=== PATIENT | female | born 1945 | race American Indian/Alaskan Native ===

== ENCOUNTER 2017-03-13 09:35 | Outpatient (CLI) | payer MEDICARE ==
--- NOTE | 2017-03-13 12:46 | Mammography Report ---
Bilateral mammogram and bilateral breast ultrasound: The patient presents with a history of left mastectomy with reconstruction. Currently feeling some discomfort in the left breast and occasional palpable nodules in the right breast which she cannot currently identify. Routine mammographic views in addition to an exaggerated right CC image of the lateral breast demonstrates generally fatty replacement of the breast tissue unchanged from prior examination in 2015. The left breast is considerably smaller with a large volume of chunky calcification in both the superior and inferior portions of the breast. These findings are likewise unchanged. Bilateral whole breast ultrasound demonstrates a generally unremarkable breast pattern on the right. Specifically, there is no evidence of nodule or abnormal shadowing. Imaging of the left breast however demonstrates dense shadowing from areas consistent with the dense breast calcifications. No focal findings are otherwise identified. CAD used. Impression: Stable bilateral mammogram post left mastectomy. No pathology on bilateral breast ultrasound. Recommendation: Clinical followup. Annual mammogram followup. Any additional evaluation at this time should be based on your concern. BI-RADS CATEGORY: 2 = Benign ACR BI-RADS MAMMOGRAPHIC CODES: 0 = Needs additional imaging evaluation; 1 = Negative; 2 = Benign; 3 = Probably benign; 4 = Suspicious; 5 = Malignant; 6 = Known biopsy-proven malignancy COMMENT: 1. Dense breast tissue, i.e., adenosis, fibrocystic changes, etc., may obscure an underlying neoplasm. 2. Approximately 10% of cancers are not detected with mammography. 3. A negative mammography report should not delay biopsy if a clinically suspicious mass is present.
== END 2017-03-13 09:36 | disposition home or self-care (01) ==
LOC: MAMMO 09:35
PROVIDERS: ATTEND Internal Medicine Hematology & Oncology
DX: C50.912 Malignant neoplasm of unspecified site of left female breast (principal); R92.8 Other abnormal and inconclusive findings on diagnostic imaging of breast
CPT/HCPCS: 76641; G0204; 77066